=== PATIENT | female | born 1990 ===

== ENCOUNTER 2017-06-23 00:28 | Emergency (ER) | payer OTHER ==
--- NOTE | 2017-06-23 02:13 | ED PDOC ---
Arrival/HPI - General Time Seen by Provider: 06/23/17 01:59 Historian: Patient - History of Present Illness Narrative History of Present Illness (Text): 06/23/17 02:10 Sheree Dunaway is a 26 year old female who presents to the emergency department complaining of epigastric abdominal pain associated with nausea, vomiting, and diarrhea since 6 pm yesterday. Denies any fever, chills, headache , dizziness, urinary symptoms, or any other complaints at this time. Time/Duration: Other Symptom Onset: Gradual Severity Level: Mild Activities at Onset: Light Context: Home Past Medical History - Provider Review Nursing Documentation Reviewed: Yes Family/Social History - Physician Review Nursing Documentation Reviewed: Yes Family/Social History: No Known Family HX Allergies/Home Meds Allergies/Adverse Reactions: Allergies No Known Allergies Allergy (Verified 06/23/17 02:26) Review of Systems - Physician Review All systems were reviewed & negative as marked: Yes - Review of Systems Constitutional: Normal. absent: Fatigue, Fevers Respiratory: Normal. absent: SOB, Cough, Sputum Cardiovascular: Normal. absent: Chest Pain, Palpitations Gastrointestinal: Abdominal Pain, Diarrhea, Nausea, Vomiting Neurological: Normal. absent: Headache, Dizziness Physical Exam Vital Signs Reviewed: Yes Vital Signs Temp Pulse Resp BP Pulse Ox 06/23/17 05:52 98.3 F 100 H 18 104/64 98 06/23/17 02:22 98.6 F 96 H 17 121/77 98 06/23/17 01:58 98.2 F 93 H 18 110/73 100 Temperature: Afebrile Blood Pressure: Normal Pulse: Regular Respiratory Rate: Normal Appearance: Positive for: Well-Appearing, Non-Toxic, Comfortable Pain Distress: None Mental Status: Positive for: Alert and Oriented X 3 - Systems Exam Head: Present: Atraumatic, Normocephalic Pupils: Present: PERRL Conjunctiva: Present: Normal Mouth: Present: Moist Mucous Membranes Respiratory/Chest: Present: Clear to Auscultation, Good Air Exchange. No: Respiratory Distress, Accessory Muscle Use Cardiovascular: Present: Regular Rate and Rhythm, Normal S1, S2. No: Murmurs Abdomen: Present: Normal Bowel Sounds. No: Tenderness, Distention, Peritoneal Signs, Rebound, Guarding Upper Extremity: Present: Normal Inspection. No: Cyanosis, Edema Lower Extremity: Present: Normal Inspection. No: Edema Neurological: Present: GCS=15, CN II-XII Intact, Speech Normal Skin: Present: Warm, Dry, Normal Color. No: Rashes Psychiatric: Present: Alert, Oriented x 3, Normal Insight, Normal Concentration Medical Decision Making ED Course and Treatment: 06/23/17 02:13 Impression: A 26 year old female who presents to the emergency department complaining of abdominal pain associated with nausea, vomiting and diarrhea since 6 pm yesterday evening. Plan: -- Labs -- Morphine -- IV Fluids -- Zofran -- HCG -- Urinalysis -- Reassess and disposition Progress Notes: 06/23/17 05:56 CT abdomen pelvis reviewed: IMPRESSION: 1. There is liquid stool in portions of the colon. Findings may represent a degree of diarrhea/colitis. No bowel obstruction. 2. There are bilateral ovarian cysts. There is a small amount of free cul-de- sac fluid. Re-evaluation Time: 06:23 Reassessment Condition: Re-examined, Improved - Lab Interpretations Microbiology Results: Microbiology Results 06/23/17 04:00 Urine,Clean Catch Urine Culture - Final No Growth (<1,000 CFU/ML) Lab Results: 06/23/17 02:55 06/23/17 02:55 Lab Results 06/23/17 02:55: Urine Color Yellow, Urine Appearance Sl cloudy, Urine pH 6.5, Ur Specific [place] 1.025, Urine Protein Negative, Urine Glucose (UA) Negative, Urine Ketones 15 H, Urine Blood Negative, Urine Nitrate Negative, Urine Bilirubin Negative, Urine Urobilinogen 0.2, Ur Leukocyte Esterase Small H, Urine RBC 0 - 2, Urine WBC 2 - 5, Ur Epithelial Cells 0 - 2, Urine Bacteria Few , Urine HCG, Qual Negative 06/23/17 02:55: Sodium 139, Potassium 3.9, Chloride 101, Carbon Dioxide 25, Anion Gap 17, BUN 17, Creatinine 0.6, Est GFR ( Amer) > 60, Est GFR (Non- Af Amer) > 60, Random Glucose 143 H, Calcium 9.3, Total Bilirubin 0.6, AST 43 H , ALT 49, Alkaline Phosphatase 85, Total Protein 8.3, Albumin 4.5, Globulin 3.8 , Albumin/Globulin Ratio 1.2, Lipase 63 06/23/17 02:55: PT 10.9, INR 1.01, APTT 26.6 06/23/17 02:55: WBC 9.0, RBC 4.54, Hgb 13.4, Hct 38.3, MCV 84.4, MCH 29.5, MCHC 35.0, RDW 13.2, Plt Count 199, MPV 10.1, Neutrophils % (Manual) 79 H, Band Neutrophils % 14 H*, Lymphocytes % (Manual) 3 L, Monocytes % (Manual) 4, Platelet Evaluation Normal I have reviewed the lab results: Yes - RAD Interpretation Narrative RAD Interpretations (Text): EXAM: CT Abdomen and Pelvis With Intravenous Contrast FINDINGS: Lower thorax: No acute findings. ABDOMEN: Liver: No acute findings. No mass. Gallbladder and bile ducts: No acute findings. No calcified stones. No ductal dilation. Pancreas: No acute findings. No mass. No ductal dilation. Spleen: No acute findings. No splenomegaly. Adrenals: No acute findings. No mass. Kidneys and ureters: No acute findings. No solid mass. No hydronephrosis. Stomach and bowel: There is liquid stool in portions of the colon. Appendix: No findings to suggest acute appendicitis. PELVIS: Bladder: No acute findings. No mass. Reproductive: There are bilateral ovarian cysts. There is a small amount of free cul-de-sac fluid. ABDOMEN and PELVIS: Intraperitoneal space: See above. Bones/joints: No acute fracture. No dislocation. Soft tissues: No acute findings. Vasculature: No acute findings. No abdominal aortic aneurysm. Lymph nodes: No acute findings. No enlarged lymph nodes. IMPRESSION: 1. There is liquid stool in portions of the colon. Findings may represent a degree of diarrhea/colitis. No bowel obstruction. 2. There are bilateral ovarian cysts. There is a small amount of free cul-de- sac fluid. Dictated and Authenticated by: Andres Agee MD Radiology Orders: 06/23/17 04:23 ABD & PELVIS IV CONTRAST ONLY [CT] Stat Spice Blender: Radiologist - Medication Orders Current Medication Orders: Discontinued Medications Sodium Chloride (Sodium Chloride 0.9%) 1,000 mls @ 100 mls/hr IV .Q10H STA Stop: 06/23/17 12:26 Last Admin: 06/23/17 02:45 Dose: 100 mls/hr Iohexol (Omnipaque 350 100 Ml) Confirm Administered Dose 350 mg .ROUTE .STK-MED ONE Stop: 06/23/17 04:37 Ketorolac Tromethamine (Toradol) 30 mg IVP ONCE ONE Stop: 06/23/17 06:23 Last Admin: 06/23/17 06:35 Dose: 30 mg Morphine Sulfate (Morphine) 2 mg IVP STAT STA Stop: 06/23/17 02:28 Last Admin: 06/23/17 02:45 Dose: 2 mg Ondansetron HCl (Zofran Inj) 4 mg IVP STAT STA Stop: 06/23/17 02:28 Last Admin: 06/23/17 02:45 Dose: 4 mg - Scribe Statement The provider has reviewed the documentation as recorded by the [employer] Amy Whitten Provider Attestation: Provider Scribe Attestation: All medical record entries made by the Scribe were at my direction and personally dictated by me. I have reviewed the chart and agree that the record accurately reflects my personal performance of the history, physical exam, medical decision making, and the department course for this patient. I have also personally directed, reviewed, and agree with the discharge instructions and disposition.\ Disposition/Present on Arrival - Present on Arrival Any Indicators Present on Arrival: No - Disposition Have Diagnosis and Disposition been Completed?: Yes Diagnosis: Colitis Disposition: HOME/ ROUTINE Disposition Time: 06:23 Condition: GOOD Discharge Instructions (ExitCare): Colitis (ED) Prescriptions: Metronidazole [Flagyl] 500 mg PO TID #15 tab Ondansetron [Zofran Odt] 8 mg PO TID PRN #10 odt PRN Reason: Nausea/Vomiting Referrals: Reji Onofre MD [Primary Care Provider] - Follow up with primary Forms: [employer] (Malay)
[2017-06-23 02:26] VITALS: O2SAT 98
[2017-06-23] MEDS ORDERED: Sodium Chloride 0.9% 1,000 ML IV STA (02:27)
[2017-06-23] MEDS ORDERED: Morphine 2 mg/ml ISec IVP STA (02:27)
[2017-06-23 03:26] LABS: HEMOGLOBIN 13.4 g/dL (12.0-16.0); MEAN CELL VOLUME 84.4 fl (80.0-105.0); MEAN CORPUSCULAR HEMOGLOBIN 29.5 pg (25.0-35.0); MEAN PLATELET VOLUME 10.1 fl (7.0-11.0); PH,URINE 6.5 (4.7-8.0); PLATELET COUNT 199 10^3/uL (120.0-450.0); RBC 4.54 10^6/uL (3.5-6.1); RED CELL DISTRIBUTION WIDTH 13.2 % (11.5-14.5); URINE BILIRUBIN NEGATIVE (NEGATIVE); URINE BLOOD NEGATIVE (NEGATIVE); URINE GLUCOSE (UA) NEGATIVE (NEGATIVE); URINE LEUKOCYTE ESTERASE SMALL Leu/uL (NEGATIVE); URINE NITRATE NEGATIVE (NEGATIVE); URINE PROTEIN NEGATIVE mg/dL (<30 mg/dL); URINE UROBILINOGEN 0.2 E.U./dL (<1 E.U./dL)
[2017-06-23 03:29] LABS: URINE APPEARANCE SL CLOUDY (CLEAR); URINE COLOR YELLOW (YELLOW)
[2017-06-23 03:30] LABS: ALB/GLOB RATIO 1.2 (1.1-1.8); ALBUMIN 4.5 g/dL (3.0-4.8); ALT/SGPT 49 U/L (7-56); AST/SGOT 43 U/L (15-39); BLOOD UREA NITROGEN 17 mg/dL (7-21); CALCIUM 9.3 mg/dL (8.4-10.5); GFR AFRICAN-AMERICAN > 60; GFR NON-AFRICAN AMERICAN > 60; HCG,QUALITATIVE URINE NEGATIVE (NEGATIVE); LIPASE 63 U/L (23-300)
[2017-06-23 03:31] LABS: INR 1.01 (0.93-1.08); PARTIAL THROMBOPLASTIN TIME 26.6 Seconds (23.7-30.8); PROTHROMBIN TIME 10.9 Seconds (9.9-11.8)
[2017-06-23 03:59] LABS: URINE RBC 0 - 2 /hpf (0-2)
[2017-06-23 04:00] LABS: URINE BACTERIA FEW (NEG); URINE EPITHELIAL CELLS 0 - 2 /hpf (0-5)
[2017-06-23 04:14] LABS: NEUTROPHIL 79 % (50.0-70.0)
[2017-06-23 04:16] LABS: BAND 14 % (0-2); LYMPHOCYTE 3 % (22.0-35.0); MONOCYTE 4 % (1.0-6.0); PLATELET ESTIMATE NORMAL (NORMAL)
[2017-06-23] MEDS ORDERED: Iohexol 350 MG/100 ML VIAL ONE (04:36)
[2017-06-23 05:54] VITALS: BP 104/64; PULSE 100; RESP 18; TEMP 98.3
--- NOTE | 2017-06-23 07:52 | CT ---
PROCEDURE: CT Abdomen and Pelvis with contrast HISTORY: abd pain COMPARISON: None. TECHNIQUE: Contrast dose: 100 mL Omnipaque 350 Radiation dose: Total exam DLP = 281.32 mGy-cm. This CT exam was performed using one or more of the following dose reduction techniques: Automated exposure control, adjustment of the mA and/or kV according to patient size, and/or use of iterative reconstruction technique. FINDINGS: LOWER THORAX: Unremarkable. LIVER: Unremarkable. No gross lesion or ductal dilatation. GALLBLADDER AND BILE DUCTS: Unremarkable. PANCREAS: Unremarkable. No gross lesion or ductal dilatation. SPLEEN: Unremarkable. ADRENALS: Unremarkable. No mass. KIDNEYS AND URETERS: Unremarkable. No hydronephrosis. No solid mass. VASCULATURE: Unremarkable. No aortic aneurysm. BOWEL: Unremarkable. No obstruction. No gross mural thickening. APPENDIX: Not identified. No secondary findings to suggest acute appendicitis. PERITONEUM: Trace fluid in cul-de-sac. LYMPH NODES: Multiple subcentimeter retroperitoneal lymph nodes, no probable clinical significance. BLADDER: Poorly distended. No gross abnormality. REPRODUCTIVE: Unremarkable uterus. Ruptured/involuting right ovarian cyst, 2.3 cm greatest dimension. BONES: No acute fracture. OTHER FINDINGS: None. IMPRESSION: Ruptured/involuting right ovarian cyst, 2.3 cm. Trace fluid in cul-de-sac. No other significant abnormality. Preliminary interpretation of this examination was reported by [facility] at 5:28 a.m. on 06/23/2017. There is concurrence of this report with the preliminary interpretation.
== END 2017-06-23 06:37 | disposition home or self-care (01) ==
LOC: ED 00:28
DX: K52.9 Noninfective gastroenteritis and colitis, unspecified (principal)
CPT/HCPCS: 74177; 80053; 81001; 83690; 84703; 85025; 85610; 85730; 87086; 96374; 96375; 99283; J1885; J2270; J2405; J7040; Q9967

== ENCOUNTER 2017-08-08 16:06 | Emergency (ER) | payer OTHER ==
[2017-08-08 16:12] VITALS: BP 107/64; PULSE 75; RESP 18; TEMP 97.9; O2SAT 98
--- NOTE | 2017-08-08 16:33 | ED PDOC ---
Arrival/HPI - General Historian: Patient - History of Present Illness Time/Duration: > month Context: Home - General Chief Complaint: Abnormal Skin Integrity Time Seen by Provider: 08/08/17 16:15 - History of Present Illness Narrative History of Present Illness (Text): 08/08/17 16:15 This 27 yo female with pmh asthma, anxiety, presents to this ED c/o generalized rash, pruritus x 4 weeks. Patient stated she was seen by her PMD who prescribed her steroid ointment x 4 weeks ago, without significant relief of symptoms. Patient denies sob, cp, abdominal pain, recent travel, urinary symptoms or sick contact. (Luma Hahn) Past Medical History - Provider Review Nursing Documentation Reviewed: Yes - Infectious Disease Hx of Infectious Diseases: None - Cardiac Hx Angina: No - Pulmonary Hx Asthma: No - Neurological Hx Multiple Sclerosis: No - HEENT Hx Epistaxis: No - Renal Hx Neurogenic Bladder: No - Hematological/Oncological Hx Blood Transfusions: No - Integumentary Hx Melanoma: No - Gastrointestinal Hx Esophageal Varices: No - Genitourinary/Gynecological Hx Genitourinary Disorders: Yes Other/Comment: PCOS - Psychiatric Hx Anxiety: Yes Hx Depression: Yes Hx Substance Use: No - Surgical History Hx Penile Implant: No - Anesthesia Hx Anesthesia: No Family/Social History - Physician Review Nursing Documentation Reviewed: Yes Family/Social History: Other (non-contributory) Smoking Status: Never Smoked Hx Alcohol Use: Yes Hx Substance Use: No Allergies/Home Meds Allergies/Adverse Reactions: Allergies No Known Allergies Allergy (Verified 08/08/17 16:08) Home Medications: Home Meds Medication Instructions Recorded Confirmed Sertraline [Zoloft] 100 mg PO DAILY 08/08/17 08/08/17 Review of Systems - Review of Systems Constitutional: Normal. absent: Fatigue, Weight Change, Fevers, Night Sweats Eyes: Normal ENT: Normal Respiratory: Normal. absent: SOB, Cough Cardiovascular: Normal. absent: Chest Pain, Palpitations Gastrointestinal: Normal. absent: Abdominal Pain, Nausea, Vomiting Genitourinary Female: Normal. absent: Dysuria, Frequency, Hematuria Musculoskeletal: Normal Skin: Rash, Pruritis. absent: Skin Lesions, Laceration, Abscess, Ulcer, Cellulitis Neurological: Normal. absent: Headache, Dizziness Endocrine: Normal Hemo/Lymphatic: Normal Psychiatric: Normal Physical Exam Temperature: Afebrile Blood Pressure: Normal Pulse: Regular Respiratory Rate: Normal Appearance: Positive for: Well-Appearing, Non-Toxic, Comfortable Pain Distress: None Mental Status: Positive for: Alert and Oriented X 3 - Systems Exam Head: Present: Atraumatic, Normocephalic Pupils: Present: PERRL Extroacular Muscles: Present: EOMI Conjunctiva: Present: Normal Mouth: Present: Moist Mucous Membranes Neck: Present: Normal Range of Motion. No: Meningeal Signs Respiratory/Chest: Present: Clear to Auscultation, Good Air Exchange. No: Respiratory Distress, Accessory Muscle Use Cardiovascular: Present: Regular Rate and Rhythm, Normal S1, S2. No: Murmurs Abdomen: Present: Normal Bowel Sounds. No: Tenderness, Distention, Peritoneal Signs Back: Present: Normal Inspection Upper Extremity: Present: Normal Inspection, Normal ROM, NORMAL PULSES, Neurovascularly Intact, Capillary Refill < 2s. No: Cyanosis, Edema Lower Extremity: Present: Normal Inspection, NORMAL PULSES, Normal ROM, Neurovascularly Intact, Capillary Refill < 2 s. No: Edema, CALF TENDERNESS Neurological: Present: GCS=15, CN II-XII Intact, Speech Normal, Motor Func Grossly Intact, Normal Sensory Function, Normal Cerebellar Funct, Gait Normal Skin: Present: Warm, Dry, Rashes (urticaria like rash. rash blanches on palpation.), Normal Color Psychiatric: Present: Alert, Oriented x 3, Normal Insight, Normal Concentration Vital Signs Temp Pulse Resp BP Pulse Ox 08/08/17 16:11 97.9 F 75 18 107/64 98 Medical Decision Making Re-evaluation Time: 17:36 Reassessment Condition: Re-examined, Improved ED Course and Treatment: I was available for consultation during PA evaluation. The chart was reviewed by me, and I agree with disposition. The documented history was done by the physician assembly member. The documented physical exam was done by the physician assembly member. The documented procedures were done by the physician assembly member. (Jose Kimbrough) 08/08/17 17:36 Re-evaluation. Patient feels better. Discussed results and plan with patient who expresses understanding. All questions answered and there is agreement with the plan to discharge home with instructions. Patient stable for discharge. Return if symptoms persist or worsen. I reviewed with patient regarding risk of Prednisone, which includes glaucoma, DM, AVN, glaucoma, and other risk not listed. She was encourage to reviewed insert from pharmacy about risk vs benefits. Patient still requested Prednisone for her rash. She understood risk. (Luma Hahn) - Medication Orders Current Medication Orders: Discontinued Medications Famotidine (Pepcid) 40 mg PO STAT STA Stop: 08/08/17 16:37 Last Admin: 08/08/17 17:04 Dose: 40 mg Hydroxyzine Pamoate (Vistaril) 25 mg PO STAT STA PRN Reason: Protocol Stop: 08/08/17 16:37 Last Admin: 08/08/17 17:16 Dose: 25 mg Prednisone (Prednisone Tab) 60 mg PO STAT ONE Stop: 08/08/17 16:36 Last Admin: 08/08/17 17:04 Dose: 60 mg Disposition/Present on Arrival - Present on Arrival Any Indicators Present on Arrival: No History of DVT/PE: No History of Uncontrolled Diabetes: No Urinary Catheter: No History of Decub. Ulcer: No History Surgical Site Infection Following: None - Disposition Have Diagnosis and Disposition been Completed?: Yes Disposition Time: 17:39 Patient Plan: Discharge - Disposition Diagnosis: Rash and nonspecific skin eruption, Eczema Disposition: HOME/ ROUTINE Condition: GOOD Discharge Instructions (ExitCare): Eczema in Children (ED), Dermatitis (ED) Additional Instructions: Call private doctor for follow up visit in 1-2 days. Call Dis[facility] [employer] for further medical evaluation. Take medication as instructed with food. Return to emergency if symptoms worsen. Apply Aquaphor healing ointment- [facility] within 2 minutes after shower. Prescriptions: Famotidine [Pepcid] 40 mg PO DAILY #10 tablet Hydroxyzine Pamoate [Vistaril] 25 mg PO Q6H PRN #30 capsule PRN Reason: Itching / Pruritus Prednisone [Deltasone] 2 tab PO DAILY #8 tablet Referrals: Reji Onofre MD [Primary Care Provider] - Follow up with primary Cammie Sanchez MD [Staff Provider] - Follow up with primary Forms: [employer] (Japanese)
== END 2017-08-08 17:45 | disposition home or self-care (01) ==
LOC: ED 16:06
DX: L30.9 Dermatitis, unspecified (principal); R21 Rash and other nonspecific skin eruption
CPT/HCPCS: 81025; 99282; Q0177